=== PATIENT | male | born 1990 | race Caucasian/White ===

== ENCOUNTER → 2016-12-16 | Outpatient (REF) | payer BC ==
[2016-12-16 19:36] LABS: BASO # 0.1 K/mm3 (0.0-0.2); BASO % 0.7 % (0.0-1.0); EOS # 0.2 K/mm3 (0.0-0.50); EOS % 2.5 % (0.0-3.0); LARGE UNSTAINED CELL # 0.1 K/mm3 (0.0-0.4); LARGE UNSTAINED CELL % 1.6 % (0.0-4.0); LYMPH # 2.6 K/mm3 (1.5-6.5); LYMPH % 32.8 % (24.0-44.0); MEAN CORPUSCULAR HEMOGLOBIN 29.1 pg (27.0-33.0); MEAN CORPUSCULAR HGB CONC 34.6 g/dl (32.0-36.5); MEAN CORPUSCULAR VOLUME 83.9 fl (80.0-96.0); MONO # 0.5 K/mm3 (0.0-0.8); MONO % 6.6 % (0.0-5.0); NEUTROPHILS # 4.2 K/mm3 (1.8-7.7); NEUTROPHILS % 55.9 % (36.0-66.0); PLATELET COUNT, AUTOMATED 240 k/mm3 (150-450); RED CELL DISTRIBUTION WIDTH 12.4 % (11.5-14.5); WHITE BLOOD COUNT 7.6 K/mm3 (4.0-10.0)
== END ==
LOC: M LAB REF 16:50
PROVIDERS: ATTEND Family Medicine Addiction Medicine
DX: D72.828 Other elevated white blood cell count (principal)

== ENCOUNTER → 2016-12-21 | Outpatient (CLI) | payer BC ==
--- NOTE | 2016-12-22 01:03 | REP ---
Clinical: Bilateral testicular pain. Technique: Yun scale and color Doppler evaluation using linear and curved array transducer with color Doppler evaluation. Findings: The testicles and epididymi are relatively normal in contour, size, echogenicity, vascularity and overall appearance. There is no evidence for intratesticular mass lesion, infectious/inflammatory process, with torsion. No obvious hydroceles or varicoceles are identified. Right testicle measures 4.6 x 2.0 x 2.8 cm cm. Left testicle measures 4.3 x 2.1 x 2.5 cm cm. Impression: Essentially normal scrotal ultrasound. Signed by Drake Robledo MD 12/22/2016 12:54 A
== END ==
LOC: M RAD 12:04
PROVIDERS: ATTEND Family Medicine Addiction Medicine
DX: N50.89 Other specified disorders of the male genital organs (principal)

== ENCOUNTER 2018-09-11 18:41 | Emergency (ER) | payer BC, OTHER ==
[~2018-09-11] VITALS: Ht 182.9 cm; Wt 63.6 kg
[2018-09-11] MEDS ORDERED: ROBA500T PO (20:40)
[2018-09-11] MEDS ORDERED: NEUR300C PO (20:40)
[2018-09-11] MEDS ORDERED: IBUP-359 PO (20:40)
[2018-09-11] MEDS ORDERED: GABAPENTIN 300 MG CAP PO ONE (20:45)
[2018-09-11] MEDS ORDERED: KETOROLAC 60 MG/2 ML VIAL (J1885) IM ONE (20:45)
[2018-09-11] MEDS ORDERED: METHOCARBAMOL 500 MG TAB PO ONE (20:45)
[2018-09-11 20:56] VITALS: BP 121/79
== END 2018-09-11 21:09 | disposition home or self-care (01) ==
LOC: M ED 18:41
DX: M47.24 Other spondylosis with radiculopathy, thoracic region (principal); M47.26 Other spondylosis with radiculopathy, lumbar region; Z88.0 Allergy status to penicillin
CPT/HCPCS: 96372; 99283; J1885

== ENCOUNTER 2018-11-23 10:47 | Emergency (ER) | payer OTHER ==
[~2018-11-23] VITALS: Ht 182.9 cm; Wt 64.6 kg
[~2018-11-23 10:47] MED LIST: IBUP-359 PO; NEUR300C PO; ROBA500T PO
[2018-11-23] MEDS ORDERED: VITAD1000T PO (11:25)
[2018-11-23] MEDS ORDERED: SERT-141 PO (11:27)
[2018-11-23] MEDS ORDERED: MELA3TAB24 PO (11:27)
[2018-11-23] MEDS ORDERED: DICL1GEL3 TOP (11:27)
--- NOTE | 2018-11-23 13:09 | REP ---
CT right hip without contrast: History: Right hip pain. Question fracture. No comparison radiographs. Findings: There is no evidence of proximal femur or right hemipelvis fracture. Right hip joint space is normally aligned. There are small bone islands in the right ischium and right iliac bone near the acetabulum. No bony destructive lesion is seen. No CT evidence of joint effusion or periarticular fluid collection. There are dystrophic calcifications in the prostate gland. Impression: Negative CT study of the right hip. No fracture seen. Electronically Signed by Mic Stockton MD 11/23/2018 08:29 P
[2018-11-23 13:40] VITALS: BP 112/75
== END 2018-11-23 13:41 | disposition home or self-care (01) ==
LOC: M ED 10:47
DX: S70.01XA Contusion of right hip, initial encounter (principal); X58.XXXA Exposure to other specified factors, initial encounter; Y92.9 Unspecified place or not applicable; Y93.89 Activity, other specified; Y99.9 Unspecified external cause status; F43.10 Post-traumatic stress disorder, unspecified; Z79.899 Other long term (current) drug therapy; Z88.0 Allergy status to penicillin

== ENCOUNTER 2021-08-19 10:01 | Emergency (ER) | payer OTHER ==
[~2021-08-19] VITALS: Ht 182.9 cm; Wt 63.6 kg
[~2021-08-19 10:01] MED LIST changes: +CHOL100029 PO; +DICL1GEL3 TOP; +MELA3TAB24 PO; +SERT-141 PO
[2021-08-19 11:53] LABS: BASO # 0.1 10^3/uL (0.0-0.2); BASO % 0.5 % (0.0-1.0); EOS # 0.1 10^3/uL (0.0-0.5); EOS % 1.2 % (0.0-3.0); HEMOGLOBIN 17.2 g/dl (13.5-17.5); LYMPH # 2.1 10^3/uL (1.5-5.0); LYMPH % 19.7 % (24.0-44.0); MEAN CORPUSCULAR HGB CONC 34.4 g/dl (32.0-36.5); MEAN CORPUSCULAR VOLUME 84.2 fl (80.0-96.0); MONO # 0.9 10^3/uL (0.0-0.8); MONO % 7.9 % (2.0-8.0); NEUTROPHILS # 7.6 10^3/uL (1.5-8.5); NEUTROPHILS % 70.1 % (36.0-66.0); PLATELET COUNT, AUTOMATED 261 10^3/uL (150-450); RED BLOOD COUNT 5.94 10^6/uL (4.30-6.10); WHITE BLOOD COUNT 10.9 10^3/uL (4.0-10.0)
[2021-08-19 12:38] LABS: ALBUMIN 4.4 GM/DL (3.2-5.2); BILIRUBIN,DIRECT 0.1 MG/DL (0.0-0.2); BILIRUBIN,TOTAL 0.4 MG/DL (0.2-1.0); TOTAL PROTEIN 7.4 GM/DL (6.4-8.2)
[2021-08-19] MEDS ORDERED: ONDANSETRON 4MG/2ML VIAL IV ONE (12:50)
[2021-08-19] MEDS ORDERED: NS 1,000 ML IV ONE (12:50)
[2021-08-19] MEDS ORDERED: KETOROLAC 30 MG/ML 1ML VIAL IV ONE (12:50)
[2021-08-19 13:57] VITALS: BP 118/77
[2021-08-19] MEDS ORDERED: LIDOCAINE 5% (LIDODERM) PATCH TD ONE (14:10)
[2021-08-19] MEDS ORDERED: ONDA4TAB6 PO (14:20)
[2021-08-19] MEDS ORDERED: **NOTE PATIENT COMMENT** MISC XX ONE (21:00)
== END 2021-08-19 15:01 | disposition home or self-care (01) ==
LOC: M ED 10:01
DX: R10.84 Generalized abdominal pain (principal); R11.2 Nausea with vomiting, unspecified; R19.7 Diarrhea, unspecified; Z88.0 Allergy status to penicillin
CPT/HCPCS: 36415; 74176; 80047; 80076; 81001; 83690; 85025; 96361; 96374; 96375; 99284; J1885; J2405

== ENCOUNTER → 2025-01-16 | Outpatient (CLI) | payer OTHER ==
[~2025-01-16] MED LIST changes: +DICL100G10 TOP; -DICL1GEL3 TOP; +ONDA-282 PO
== END ==
LOC: M CARPUL 14:30
PROVIDERS: ATTEND Physician Assistant
DX: R94.31 Abnormal electrocardiogram [ECG] [EKG] (principal); I34.0 Nonrheumatic mitral (valve) insufficiency; I36.1 Nonrheumatic tricuspid (valve) insufficiency; I37.1 Nonrheumatic pulmonary valve insufficiency